=== PATIENT | male | born 1940 | race Caucasian/White ===

== ENCOUNTER 2019-05-22 16:17 | Observation (INO) | payer MEDICARE ==
[~2019-05-22] VITALS: Ht 172.7 cm; Wt 87.9 kg
[~2019-05-22 16:17] MED LIST: HYDCHL25 PO; HYDR1TAB94 PO; Macrobid 100 M100 MG PO; Pyridium100 MG PO; Sulfamethoxazo1 EAC4 PO; TRAZ100 PO
[2019-05-22] MEDS ORDERED: FINA5 PO (16:33)
[2019-05-22] MEDS ORDERED: TAMS.4ER PO (16:34)
[2019-05-22 16:56] LABS: BASOPHILS ABSOLUTE AUTO 0.06 K/mm3 (0.00-0.23); BASOPHILS PERCENT AUTO 1 % (0-2); EOSINOPHILS ABSOLUTE AUTO 0.18 K/mm3 (0.00-0.68); EOSINOPHILS PERCENT AUTO 2 % (0-6); Hematocrit 42.5 % (37.0-53.0); Hemoglobin 13.9 g/dL (13.5-17.5); IMMATURE GRAN ABSOLUTE AUTO 0.09 K/mm3 (0.00-0.10); IMMATURE GRAN PERCENT AUTO 1 % (0-1); LYMPHOCYTES ABSOLUTE AUTO 1.98 K/mm3 (0.84-5.20); LYMPHOCYTES PERCENT AUTO 25 % (21-46); MONOCYTES ABSOLUTE AUTO 0.76 K/mm3 (0.16-1.47); MONOCYTES PERCENT AUTO 10 % (4-13); Mean Corpuscular HGB Conc 32.7 g/dL (31.5-36.5); Mean Corpuscular Volume 95 fL (80-100); Mean Platelet Volume 10.8 fL (9.1-12.4); NEUTROPHILS ABSOLUTE AUTO 4.91 K/mm3 (1.96-9.15); NEUTROPHILS PERCENT AUTO 62 % (41-73); Platelet Count 182 K/mm3 (150-400); RDW Coefficient Variation 12.9 % (11.7-14.2); RDW Standard Deviation 45.6 fL (35.1-46.3); Red Blood Cell Count 4.48 M/mm3 (4.30-5.90); White Blood Cell Count 7.98 K/mm3 (4.00-11.30)
[2019-05-22 17:12] LABS: Bun/Creatinine Ratio 14.1 (12.0-20.0); Calcium, Blood 8.6 mg/dL (8.5-10.1); Creatinine, Blood 1.63 mg/dL (0.60-1.20)
--- NOTE | 2019-05-23 05:09 | NUR ---
SHIFT SUMMARY PT ER ADMIT THIS SHIFT FOR VERTIGO. AFTER ADMISSION PT STATES THAT HIS DIZZINESS AND VERTIGO HAD IMPROVED, BUT IT WAS STILL SLIGHTLY THERE. PT STATES NAUSEA BUT ONLY WHEN HE THINKS ABOUT IT, AND DECLINES ANYTHING FOR IT. HE DENIES PAIN. VITALS STABLE. RESP E/U ON RA. PT RECEIVED 1L BOLUSOF NS AND IS RECEIVING IVF AT 15O ML/HR. POISON CONTROL CALLED FOR UPDATE ON PT STATUS. NO ADDITIONAL RECOMMENTATIONS AT THIS TIME. ADMISSION COMPLETE. NO ACUTE CHANGES TO REPORT. WILL CONTINUE TO MONITOR AND REPORT TO ONCOMING RN.
[2019-05-23 05:16] LABS: Bun/Creatinine Ratio 14.3 (12.0-20.0); Calcium, Blood 8.1 mg/dL (8.5-10.1); Creatinine, Blood 1.54 mg/dL (0.60-1.20); Potassium, Blood 4.3 mmol/L (3.5-5.5)
[2019-05-23] MEDS ORDERED: MOTION RELIEF25 MG PO (07:55)
--- NOTE | 2019-05-23 09:20 | NUR ---
PT AMBULATED WITH RN IN HALLWAY. PT WAS "SLIGHT" DIZZY WHEN ON SIDE OF BED, "IT'S A LOT BETTER THAN IT WAS". PT DIZZINESS INCREASED WITH AMBULATION WITH SHORT WALK. PT BACK TO BED SAFELY. PT DID HAVE GAIT BELT IN PLACE. DISCUSSED WITH NIGHT SHIFT MANAGER AND DR TRUONG.
--- NOTE | 2019-05-23 10:06 | NUR ---
POISON CONTROL CALLED FOR UPDATE, GIVEN UPDATE.
--- NOTE | 2019-05-23 13:49 | NUR ---
PT TO IMAGING.
--- NOTE | 2019-05-23 16:25 | NUR ---
THERAPY RADHA WORKED WITH PT. HERE TO SEE PT RECENTLY. DISCUSSED PT'S STATUS INCLUDING VS. DISCUSSED PT "LITTLE DIZZINESS" STILL, "JUST TAKES A MINUTE TO FOCUS, PT REPORTS GETTING BETTER BUT NOW AFTER THINKING ABOUT IT, HE IS NOT CONFIDENT HE WAS WHEN HE WAS WORKING WITH THERAPY. PT ALSO REPORTS HAVING SLIGHT DURON. UPDATED ON PT. SEE ORDERS. WILL UPDATE [employer] [employer]ER.
--- NOTE | 2019-05-23 19:03 | NUR ---
SHIFT SUMMARY PT ATE BREAKFEAST WELL, DID NOT WANT MUCH LUNCH PER PT. PT DRINKING WELL. PT BEEN GIVEN IVF ORDERED. PT WORKED WITH THERAPY AND AMBULATED IN HALLWAY. PT PT BEEN ASSISTED WITH ADL'S PRN. PT HAD MRI COMPLETED. BEEN TO SEE PT.
--- NOTE | 2019-05-24 04:46 | NUR ---
SHIFT SUMMARY PT REPORTS VERY MILD DIZZINESS BUT REPORTS FEELING MUCH BETTER. HE HAS BEEN AMBULATING IN THE ROOM INDEPENDENTLY WITHOUT DIFFICULTY. HEADACHE THIS SHIFT THAT WAS RELIEVED WITH TYLENOL. PT DENIES NAUSEA. RESP E/U ON RA WITHOUT SOB. NO MORE RECOMMENDATIONS FROM POISON CONTROL THIS SHIFT. HE FINISHED HIS LAST HALF LITER OF NS THIS SHIFT. VITALS ARE STABLE. PLAN IS FOR DC HOME TODAY. NO ACUTE CHANGES. OVERALL RESTFUL NIGHT. WILL CONTINUE TO MONITOR AND REPORT TO ONCOMING RN.
--- NOTE | 2019-05-24 10:09 | NUR ---
DISCHARGE NOTE DISCHARGED AMBULATORY POV WITH FRIEND AND IN NO ACUTE DISTRESS. IV DISCONTINUED INTACT. WRITTEN RX FOR PT @[facility] AND MECLIZINE HANDED TO PATIENT. ALL VALUABLES RETURNED TO PT AT TIME OF DISCHARGE. PT VERBALIZED UNDERSTANDING OF ALL DISCHARGE AND MEDICATION INSTRUCTIONS. CONTACT INFORMATION PROVIDED TO PT INCLUDING ADDRESS AND PHONE NUMBER TO CONTACT [facility].
== END 2019-05-24 10:02 | disposition home or self-care (01) ==
LOC: ER 16:17 → MEDS 16:18 → ENPENDDIS 05-24 07:35 → MEDS 05-24 10:02
PROVIDERS: Emergency Medicine; Nurse Practitioner Acute Care; ADMIT Hospitalist
DX: R42 Dizziness and giddiness (principal); T60.1X1A Toxic effect of halogenated insecticides, accidental (unintentional), initial encounter; T60.2X1A Toxic effect of other insecticides, accidental (unintentional), initial encounter; N17.9 Acute kidney failure, unspecified; N40.0 Benign prostatic hyperplasia without lower urinary tract symptoms; Z79.899 Other long term (current) drug therapy
CPT/HCPCS: 36415; 70551; 71046; 80048; 85025; 93005; 93010; 96361; 97116; 97161; 99285-25; A9270; A9270-GY; G0378; J7030; J7040

== ENCOUNTER 2024-11-27 19:43 | Inpatient (IN) | payer OTHER ==
[2024-11-27] VITALS (8 sets, daily range): BP systolic 91–108; BP diastolic 46–75
[~2024-11-27] VITALS: Ht 172.7 cm; Wt 83.3 kg
[~2024-11-27 19:43] MED LIST changes: +FINA5 PO; +MOTION RELIEF25 MG PO; +TAMS.4ER PO
[2024-11-27] MEDS ORDERED: propofoL 100 ML IV ONE (20:10)
[2024-11-27 20:15] LABS: BASOPHILS ABSOLUTE AUTO 0.02 K/mm3 (0.00-0.23); BASOPHILS PERCENT AUTO 0 % (0-2); EOSINOPHILS PERCENT AUTO 0 % (0-6); Hemoglobin 12.3 g/dL (13.5-17.5); IMMATURE GRAN PERCENT AUTO 1 % (0-1); LYMPHOCYTES ABSOLUTE AUTO 0.56 K/mm3 (0.84-5.20); LYMPHOCYTES PERCENT AUTO 7 % (21-46); MONOCYTES ABSOLUTE AUTO 0.42 K/mm3 (0.16-1.47); MONOCYTES PERCENT AUTO 5 % (4-13); Mean Corpuscular HGB 31.1 pg (26.0-34.0); Mean Corpuscular HGB Conc 33.2 g/dL (31.5-36.5); Mean Corpuscular Volume 93 fL (80-100); NEUTROPHILS ABSOLUTE AUTO 7.43 K/mm3 (1.96-9.15); NEUTROPHILS PERCENT AUTO 87 % (41-73); Platelet Count 216 K/mm3 (150-400); RDW Coefficient Variation 13.1 % (11.7-14.2); Red Blood Cell Count 3.96 M/mm3 (4.30-5.90); White Blood Cell Count 8.53 K/mm3 (4.00-11.30)
[2024-11-27] MEDS ORDERED: propofoL 100 ML IV SCH (20:15)
[2024-11-27] MEDS ORDERED: Midazolam HCL 1 MG/ML 5MLVIAL IV ONE ×2 (20:25→20:45)
[2024-11-27 20:28] LABS: Albumin, Blood 3.4 g/dL (3.4-5.0); Albumin/Globulin Ratio 0.9 (0.8-1.8); Bilirubin, Total 0.5 mg/dL (0.1-1.0); Bun/Creatinine Ratio 18.6 (12.0-20.0); Calcium, Blood 8.9 mg/dL (8.5-10.1); Creatinine, Blood 1.45 mg/dL (0.60-1.20); Globulin, Blood 3.9 g/dL (2.2-4.0); Potassium, Blood 5.1 mmol/L (3.5-5.5); Total Protein, Blood 7.3 g/dL (6.4-8.2)
[2024-11-27 20:34] LABS: Magnesium, Blood 1.9 mg/dL (1.6-2.4)
[2024-11-27] MEDS ORDERED: Midazolam HCl 1MG / ML 2ML Vial ONE (20:46)
[2024-11-27] MEDS ORDERED: NS 1,000 ML IV ONE (20:47)
[2024-11-27] MEDS ORDERED: FentaNYL Citrate 50 MCG/ML 2 ML Injection ONE (20:47)
[2024-11-27] MEDS ORDERED: Heparin Sodium 1000 Units/ML 10ML MDV ONE (20:48)
[2024-11-27] MEDS ORDERED: NS 250 ML IV ONE (20:48)
[2024-11-27] MEDS ORDERED: Midazolam HCL 50 MG in NS 40 ML IV SCH (20:50)
[2024-11-27] MEDS ORDERED: dexmedeTOMIDine 100 ML IV SCH (20:50)
[2024-11-27] MEDS ORDERED: Etomidate 2MG / ML 10ML Vial XX ONE (21:57)
[2024-11-27] MEDS ORDERED: EPINEPhrine HCl 0.1 MG/ML 10ML SYR XX ONE (21:57)
[2024-11-27] MEDS ORDERED: Midazolam HCl 1MG / ML 2ML Vial XX ONE (21:57)
[2024-11-27] MEDS ORDERED: SuccINYLCHOLINE Chloride 100 MG/5 ML 5MLSYR IV ONE (21:57)
--- NOTE | 2024-11-27 22:08 | NUR ---
PT ARRIVED FROM DIRECTOR PUBLIC POLICY VIA BED AT [facility] 2142. HE IS INTUBATED AND SEDATED. PROPOFOL INFUSING AT 50MCGS/KG/MIN, EPI DRIP INFUSING AT 8MCGS/MIN. PT HAS SOME SHIVERING AT TIMES. PT DOES NOT OPEN HIS EYES OR FOLLOW DIRECTIONS. PUPILS ARE 2 AND SLUGGISH PERRLA. I HAVE SEEN NON PURPOSEFUL MOVEMENT WITH BOTH ARMS AND BOTH LEGS. TEMP BLOUNT INTACT PATENT AND DRAINING YELLOW URINE TO GRAVITY. PT HAS A 18G IN RIGHT AC, 20G IN LEFT AC. TRANSVENOUS PACER IS 36CM AT SITE OF INSERTION. ETT IS 8.0 24 AT THE LIP. ACVC RATE 18 TV 480 FIO2 50% PEEP 5. PT HAS AN OG TUBE CLAMPED AT THIS TIME. AFEBRILE. TRANSVENOUS SETTINGS RATE 80 MA [address] ON THE SUPERINTENDENT CONSTRUCTION. PT CAME TO ICU W/LOOSE RIGHT UPPER FRONT TOOTH, IT WAS REMOVED AND PLACED IN CONTAINER. MD DAVID.
--- NOTE | 2024-11-27 22:27 | NUR ---
VERSED DRIP BEING ADDED FOR PT SEDATION PER MD ORDER
== END 2024-11-27 23:13 | disposition short-term general hospital (02) | DRG 297 ==
LOC: ER 19:43 → ICUE 21:00
PROVIDERS: Emergency Medicine; ADMIT Internal Medicine
PROC: 5A1223Z Performance of Cardiac Pacing, Continuous (ICD-10-PCS; principal; 2024-11-27)
PROC: 5A1935Z Respiratory Ventilation, Less than 24 Consecutive Hours (ICD-10-PCS; 2024-11-27)
PROC: 0BH17EZ Insertion of Endotracheal Airway into Trachea, Via Natural or Artificial Opening (ICD-10-PCS; 2024-11-27)
PROC: 3E033XZ Introduction of Vasopressor into Peripheral Vein, Percutaneous Approach (ICD-10-PCS; 2024-11-27)
PROC: 5A12012 Performance of Cardiac Output, Single, Manual (ICD-10-PCS; 2024-11-27)
DX: I46.9 Cardiac arrest, cause unspecified (principal); I13.0 Hypertensive heart and chronic kidney disease with heart failure and stage 1 through stage 4 chronic kidney disease, or unspecified chronic kidney disease; I50.32 Chronic diastolic (congestive) heart failure; D64.9 Anemia, unspecified; I25.10 Atherosclerotic heart disease of native coronary artery without angina pectoris; E78.5 Hyperlipidemia, unspecified; N18.30 Chronic kidney disease, stage 3 unspecified; I44.7 Left bundle-branch block, unspecified; Z85.51 Personal history of malignant neoplasm of bladder; Z95.2 Presence of prosthetic heart valve; Z90.5 Acquired absence of kidney; Z85.528 Personal history of other malignant neoplasm of kidney
CPT/HCPCS: 31500; 33210; 36415; 71045; 76937; 80053; 83735; 83880; 84484; 85025; 85730; 94002; 99152; C1894; J0171; J0330; J1644; J2250; J2704; J3010; J7030; J7050; J7060